=== PATIENT | male | born 1990 | race African-American/Black ===

== ENCOUNTER 2022-10-30 10:55 | Emergency (ER) | payer OTHER ==
[2022-10-30] MEDS ORDERED: Colchicine 0.6 MG TAB ONE (11:37)
[2022-10-30] MEDS ORDERED: Triamcinolone 40 MG/ML VIAL ONE (11:53)
== END 2022-10-30 13:03 | disposition home or self-care (01) ==
LOC: MADERS 10:55
DX: M10.9 Gout, unspecified (principal); Z79.899 Other long term (current) drug therapy
CPT/HCPCS: 96372; 99283; J3301